=== PATIENT | male | born 1995 | race Caucasian/White ===

== ENCOUNTER 2024-12-22 22:22 | Emergency (ER) | payer BC, SELFPAY ==
[2024-12-22 22:30] VITALS: BP 118/68; PULSE 77; RESP 16; TEMP 36.6; O2SAT 97
--- NOTE | 2024-12-22 23:00 | ED.GENADUL_ITS ---
Discharge Plan Disposition Patient Disposition: Home Condition: Good Discharge Details Clinical Impression: Strep pharyngitis ED Provider: Ector Johnston Home Meds and New Rx's Prescriptions: No Action No Known Home Meds Discharge Instructions Instructions: Strep Throat ED Additional Instructions: You were seen in the ED for sore throat and earache. You are found to have strep pharyngitis. You have been treated with a single dose of IM penicillin. Be sure to stay hydrated. May use Cepacol lozenges for throat pain. May also take acetaminophen or ibuprofen for pain. Follow-up with your primary care next week if you are not improving. Return to ED for any difficulty breathing, inability to swallow, significantly worsening pain, neurologic change, other c oncerns. HPI General Mode of arrival: ambulatory . Date/Time Provider Initiated Documentation: 12/22/24 22:36 . Limitations to Documentation: no limitations . Information obtained by: patient and RN notes reviewed . HPI Narrative: Patient presents to ED with complaint of sore throat and ear pain. Patient's symptoms began about 6 days ago. He does have some congestion. Has difficulty swallowing because of pain. No difficulty breathing. Feels like he is getting worse rather than better. No GI symptoms. He is otherwise healthy with no significant medical history. is here with similar complaints. Related Data Home Medications ?Medication ?Instructions ?Recorded ?Confirmed Unknown [No Known Home Meds] 12/22/24 12/22/24 Allergies Allergy/AdvReac Type Severity Reaction Status Date / Time No Known Allergies Allergy Unverified 12/22/24 22:35 General Stated Complaint: Sorethroat JONATHAN: 4 Review of Systems Narrative: Per HPI Exam Narrative Exam Narrative: Const: WDWN male in NAD. VS per triage. HEENT: NC/AT. Normal facial exam. TMs clear bilaterally. Oropharynx with mild swelling and erythema pretonsillar, normal-appearing tonsils. Normal- appearing posterior oropharynx. Neck: Supple. Trachea midline. Shotty anterior adenopathy. Lungs: Normal respiratory effort. Lungs are clear. Cor: RRR without murmur. Good radial pulses. Neuro: A+O x 3. Normal speech, mentation, gait. Cranial nerves II - XII grossly intact. No gross motor or sensory deficit. Ext: No C/C/E. Course Vital Signs Vital signs: Vital Signs Temperature 97.9 F 12/22/24 22:30 Pulse 77 01/27/25 22:30 Respiratory Rate 16 12/22/24 22:30 Blood Pressure 118/68 12/22/24 22:30 Pulse Oximetry 97 12/22/24 22:30 Temperature 97.9 F 12/22/24 22:30 Temperature Source Temporal Artery Scan 12/22/24 22:30 Pulse 77 12/22/24 22:30 Respiratory Rate 16 12/22/24 22:30 Blood Pressure 118/68 12/22/24 22:30 Pulse Oximetry 97 12/22/24 22:30 Oxygen Delivery Method Room Air 12/22/24 22:30 Oxygen Flow Rate 0 12/22/24 22:30 Pain Level 0 12/22/24 22:30 Medical Decision Making Patient presenting to ED with sore throat and ear pain for about 6 days now, getting worse rather than better. Exam shows some pretonsillar erythema and swelling as well as some shotty anterior adenopathy. Otherwise looks well with normal vital signs and oxygen saturation. Will obtain rapid strep as well as [id number] COVID and flu. Patient's COVID and flu are negative. Rapid strep is positive. Discussed options including no treatment, IM penicillin, oral penicillin. Given that he is getting worse rather than better is opted for treatment. Has agreed to IM penicillin which has been ordered. May follow-up with primary care next week if not improving. Return precautions provided. Lab Data Lab results reviewed: Yes I reviewed the patient's lab results. Lab results narrative: See [facility] All Active Problems (Updated 12/22/24 @ 23:44 by Ector Johnston MD) Strep pharyngitis (Acute) Medical History No significant past medical history Social History Smoking/Tobacco Use Status: Never Smoking risk assessment performed?: Yes Alcohol Intake: never Drug use: Never Substance use type: does not use
[2024-12-23 01:02] VITALS: BP 122/66; PULSE 74; RESP 16; O2SAT 98
== END 2024-12-23 01:02 | disposition home or self-care (01) ==
LOC: ER 12-23 00:55
PROVIDERS: Emergency Provider Emergency Medicine
DX: J02.0 Streptococcal pharyngitis (principal); H92.09 Otalgia, unspecified ear
CPT/HCPCS: 87426; 87880; 96372; 99284; J0561